=== PATIENT | male | born 1970 | race African-American/Black ===

== ENCOUNTER 2022-07-08 23:17 | Emergency (ER) | payer MEDICAID, OTHER ==
[~2022-07-08] VITALS: Ht 182.9 cm; Wt 0.5 kg
[~2022-07-08 23:17] MED LIST: AMLO5TAB4 PO; Acetaminophen PO; HYDR-3326 PO; ONDA4TAB5 PO; PANT40TA2 PO
[2022-07-09] MEDS ORDERED: OXYCODONE/APAP 5-325 MG TABLET PO ONE (00:15)
[2022-07-09] MEDS ORDERED: ONDANSETRON ODT 4 MG TAB.RAPDIS SL ONE (00:15)
[2022-07-09] MEDS ORDERED: ONDANSETRON ODT 4 MG TAB.RAPDIS ONE (00:18)
[2022-07-09] MEDS ORDERED: OXYCODONE/APAP 5-325 MG TABLET ONE (00:18)
[2022-07-09] MEDS ORDERED: ONDA4TAB5 PO (00:40)
[2022-07-09] MEDS ORDERED: OXYC-128 PO (00:40)
[2022-07-09] MEDS ORDERED: CYCL10TA9 PO (00:40)
[2022-07-09 01:21] VITALS: BP 125/95
== END 2022-07-09 01:25 | disposition home or self-care (01) ==
LOC: ER 23:28
DX: M54.50 Low back pain, unspecified (principal); M79.672 Pain in left foot; M79.671 Pain in right foot; I10 Essential (primary) hypertension; F17.210 Nicotine dependence, cigarettes, uncomplicated; Z88.8 Allergy status to other drugs, medicaments and biological substances; Z79.899 Other long term (current) drug therapy; V89.2XXA Person injured in unspecified motor-vehicle accident, traffic, initial encounter; Y93.89 Activity, other specified; Y92.89 Other specified places as the place of occurrence of the external cause; Y99.8 Other external cause status
CPT/HCPCS: 72110; 73630; A4663; Q0162